=== PATIENT | male | born 1955 | race Caucasian/White ===

== ENCOUNTER → 2016-07-26 | Outpatient (CLI) | payer OTHER ==
--- NOTE | ~2016-07-26 | US128 ---
[id number] [address] [address] [id number] O MR#: [id number] Acc #: [id number] NAME: NAOMIE MAGAÑA : 1955 SEX: M STUDY DATE/TIME: 07/26/2016 12:40 UNIT: [facility] ROOM: STUDY DESCRIPTION: Thyroid Attending Physician: Adair Nava M.D. Referring Physician: Adair Nava M.D. Ordering Physician: Adair Nava M.D. Primary Care Physician: Gena Silveira M.D. MEDICAL IMAGING REPORT This report is preliminary unless electronic signature is present. EXAM Thyroid ultrasound HISTORY Thyroid nodule on physical exam. FINDINGS On the right, there is a mixed, cystic and solid lesion at the lower pole of the gland measuring 1.5 x 1.1 x 1.8 cm. It is nonhypervascular. On the left, there is a probable solid nodule at the lower pole measuring 11 x 10 x 12 mm. IMPRESSION Small nodules at the lower pole of the gland bilaterally. The lesion on the right meets size criteria for needle aspiration. This could be easily accomplished with ultrasound guidance. Dictated by... Cooper Wilks M.D. THIS IS AN ELECTRONICALLY VERIFIED REPORT Cooper Wilks M.D. at 07/29/2016 3:50 PM JERE/chase TD: 07/27/2016 02:55 JOB #: [id number] MEDICAL IMAGING REPORT
== END | disposition home or self-care (01) ==
LOC: SGUS 12:23
DX: E04.1 Nontoxic single thyroid nodule (principal); E04.2 Nontoxic multinodular goiter
CPT/HCPCS: 76536